=== PATIENT | female | born 1980 | race African-American/Black ===

== ENCOUNTER 2024-03-10 12:00 | Emergency (ER) | payer SELFPAY | END 2024-03-10 12:45 | disposition home or self-care (01) | LOC: ERS 12:00 | DX: K08.89 Other specified disorders of teeth and supporting structures (principal) | CPT/HCPCS: 99282 ==

== ENCOUNTER 2025-01-25 05:58 | Emergency (ER) | payer OTHER, SELFPAY ==
[2025-01-25] MEDS ORDERED: Dexamethasone 10 MG/ML VIAL ONE (06:54)
[2025-01-25] MEDS ORDERED: Amoxicillin/Potassium Clav 875 MG TAB ONE (07:42)
[2025-01-25] MEDS ORDERED: Azithromycin 250 MG TAB ONE (07:42)
== END 2025-01-25 08:10 | disposition home or self-care (01) ==
LOC: ERS 05:58
DX: J18.9 Pneumonia, unspecified organism (principal)
CPT/HCPCS: 71046; 87428; 94640; J1100; J2919